=== PATIENT | female | born 1995 | race Caucasian/White ===

== ENCOUNTER 2018-06-08 15:10 | Emergency (ER) | payer OTHER ==
[2018-06-08 15:16] VITALS: BP 104/62
--- NOTE | 2018-06-08 18:49 | ER Document Report ---
ED Medical Screen (RME) - General Chief Complaint: Abdominal Pain Stated Complaint: ABDOMINAL PAIN Time Seen by Provider: 06/08/18 18:44 Mode of Arrival: Ambulatory Information source: Patient Notes: 22-year-old female at approximately 7 weeks per last menstrual period presents with complaint of nausea, dry heaving and generalized abdominal pain that started 1 week prior to arrival. Patient also admits to body aches, chills. I have greeted and performed a rapid initial assessment of this patient. A comprehensive ED assessment and evaluation of the patient, analysis of test resu lts and completion of medical decision making process we will be contacted by additional ED providers. PHYSICAL EXAMINATION: Vital signs reviewed GENERAL: Well-appearing, well-nourished and in no acute distress. LUNGS: No respiratory distress Musculoskeletal: Normal range of motion NEUROLOGICAL: Normal speech, normal gait. PSYCH: Normal mood, normal affect. SKIN: Warm, Dry, normal turgor, no rashes or lesions noted. TRAVEL OUTSIDE OF THE [place] IN LAST 30 DAYS: No - HPI Onset: Last week Onset/Duration: Gradual, Persistent Quality of pain: Achy Severity: Mild Associated Symptoms: Abdominal pain, Nausea, Vomiting Exacerbated by: Denies Relieved by: Denies Similar symptoms previously: No Recently seen / treated by doctor: No - Related Data Smoking: Non-smoker Frequency of alcohol use: None Drug Abuse: None Allergies/Adverse Reactions: No Known Allergies Allergy (Unverified 06/08/18 15:13) Past Medical History - Social History Chew tobacco use (# tins/day): No Frequency of alcohol use: None Drug Abuse: None Renal/ Medical History: Denies: Hx Peritoneal Dialysis Physical Exam - Vital signs Vitals: Temp Pulse Resp BP Pulse Ox 98.8 F 72 16 104/62 100 06/08/18 15:14 06/08/18 15:14 06/08/18 15:14 06/08/18 15:14 06/08/18 15:14 Course - Vital Signs Vital signs: Temp Pulse Resp BP Pulse Ox 98.8 F 72 16 104/62 100 06/08/18 15:14 06/08/18 15:14 06/08/18 15:14 06/08/18 15:14 06/08/18 15:14
[2018-06-08] MEDS ORDERED: ONDANSETRON 4 MG TAB.RAPDIS PO ONE (18:50)
[2018-06-08 20:23] LABS: ABSOLUTE LYMPHOCYTES (AUTO) 2.2 10^3/uL (0.5-4.7); ABSOLUTE MONOCYTES (AUTO) 0.7 10^3/uL (0.1-1.4); ABSOLUTE NEUT (AUTO) 6.9 10^3/uL (1.7-8.2); BASOPHILS % (AUTO) 0.4 % (0-2); EOSINOPHILS % (AUTO) 0.5 % (0-6); HEMATOCRIT 40.4 % (36.0-47.0); HEMOGLOBIN 14.3 g/dL (12.0-15.5); LYMPHOCYTES % (AUTO) 22.5 % (13-45); MEAN CORPUSCULAR HGB CONC 35.3 g/dL (32.0-36.0); MEAN CORPUSCULAR VOLUME 85 fl (80-97); MONOCYTES % (AUTO) 7.1 % (3-13); PLATELET COUNT 201 10^3/uL (150-450); RED BLOOD COUNT 4.76 10^6/uL (3.72-5.28); RED CELL DISTRIBUTION WIDTH 12.4 % (11.5-14.0); SEGMENTED NEUTROPHILS % (AUTO) 69.5 % (42-78); TOTAL CELLS COUNTED % (AUTO) 100 %; WHITE BLOOD COUNT 9.9 10^3/uL (4.0-10.5)
[2018-06-08 20:27] LABS: APPEARANCE,URINE CLOUDY; BILIRUBIN,URINE NEGATIVE (NEGATIVE); COLOR,URINE YELLOW; GLUCOSE, URINE NEGATIVE (NEGATIVE); KETONES,URINE NEGATIVE (NEGATIVE); LEUKOCYTE ESTERASE,URINE MODERATE (NEGATIVE); NITRITE,URINE NEGATIVE (NEGATIVE); PROTEIN,URINE NEGATIVE (NEGATIVE); URINE SPECIFIC GRAVITY 1.012; UROBILINOGEN,URINE NEGATIVE mg/dL (<2.0)
--- NOTE | 2018-06-08 22:11 | RADIOLOGY REPORT (SQ) ---
EXAM DESCRIPTION: US TRANSVAGINAL COMPLETED DATE/TME: 06/08/2018 18:52 CLINICAL HISTORY: 22 years, Female, with abdominal pain COMPARISON: None. TECHNIQUE: LIMITATIONS: None. FINDINGS: There is a live 7 week 2 day IUP, based on a crown-rump length of 11 mm. Embryonic cardiac activity was measured at 141 bpm. No evidence of subchorionic hemorrhage. There is a normal amount of amniotic fluid. The cervix measures 3.9 cm in length and is closed. The ovaries are unremarkable. No free fluid. IMPRESSION: Unremarkable IUP. copyright 2010 [employer]- All Rights Reserved
--- NOTE | 2018-06-08 22:22 | ER Document Report ---
ED General - General Chief Complaint: Abdominal Pain Stated Complaint: ABDOMINAL PAIN Time Seen by Provider: 06/08/18 18:44 Primary Care Provider: ANNALEE BIRCH MD [Primary Care Provider] - Follow up as needed Mode of Arrival: Ambulatory Notes: 22-year-old female at approximately 7 weeks per last menstrual period presents with complaint of nausea, dry heaving and generalized abdominal pain that started 1 week prior to arrival. Patient also admits to body aches, chills. Patient describes the pain as sharp which ebbs and flows for approximately 5 seconds at a time that is around her umbilicus. She is also complaining of urinary frequency. No other complaints TRAVEL OUTSIDE OF THE [place] IN LAST 30 DAYS: No - Related Data Allergies/Adverse Reactions: No Known Allergies Allergy (Unverified 06/08/18 15:13) Past Medical History - General Information source: Patient - Social History Smoking Status: Never Smoker Chew tobacco use (# tins/day): No Frequency of alcohol use: None Drug Abuse: None Family History: None Patient has suicidal ideation: No Patient has homicidal ideation: No Renal/ Medical History: Denies: Hx Peritoneal Dialysis Review of Systems - Review of Systems Constitutional: See HPI EENT: No symptoms reported Cardiovascular: See HPI Respiratory: See HPI Gastrointestinal: See HPI Genitourinary: See HPI Female Genitourinary: No symptoms reported Musculoskeletal: No symptoms reported Skin: No symptoms reported Hematologic/Lymphatic: No symptoms reported Neurological/Psychological: No symptoms reported Physical Exam - Vital signs Vitals: Temp Pulse Resp BP Pulse Ox 98.8 F 72 16 104/62 100 06/08/18 15:14 06/08/18 15:14 06/08/18 15:14 06/08/18 15:14 06/08/18 15:14 - Notes Notes: PHYSICAL EXAMINATION: Reviewed vital signs and charting by RN GENERAL: Alert, interacts well. No acute distress. HEAD: Normocephalic, atraumatic. EYES: Pupils equal, round Extraocular movements intact. ENT: Oral mucosa moist NECK: Full range of motion. Trachea midline. LUNGS: Clear to auscultation bilaterally, no wheezes, rales, or rhonchi. No respiratory distress. HEART: Regular rate and rhythm. No murmur ABDOMEN: soft, tender to palpation just right of umbilicus with no right lower quadrant pain. Non-distended. Bowel sounds present in all 4 quadrants. no McBur grazyna's point tenderness, no Rangel sign. EXTREMITIES: Moves all 4 extremities spontaneously. No edema, No cyanosis. NEUROLOGICAL: Alert. Normal speech. PSYCH: Normal affect, normal mood. SKIN: Warm, dry, normal turgor. No rashes or lesions noted. Course - Re-evaluation Re-evalutation: 06/08/18 22:18 Transvaginal ultrasound performed and shows a live intrauterine with a heartbeat of 141 bpm approximately 7 weeks gestation. And also with a urinary tract infection, urine sent for culture, will treat with Rocephin IM 1 time here and Keflex outpatient. Is safe and stable for discharge, no vaginal bleeding or abnormal discharge - Vital Signs Vital signs: Temp Pulse Resp BP Pulse Ox 98.8 F 72 16 104/62 100 06/08/18 15:14 06/08/18 15:14 06/08/18 15:14 06/08/18 15:14 06/08/18 15:14 - Laboratory Result Diagrams: 06/08/18 20:00 Laboratory results interpreted by me: 06/08/18 06/08/18 20:00 20:00 Beta HCG, Quant 12518.00 H Ur Leukocyte Esterase MODERATE H Urine HCG, Qual POSITIVE H Discharge - Discharge Clinical Impression: Urinary tract infection affecting care of mother in first trimester, antepartum, Nausea Qualifiers: Weeks of gestation: less than 8 weeks Qualified Code(s): Z3A.01 - Less than 8 weeks gestation of Condition: Good Disposition: HOME, SELF-CARE Additional Instructions: You are seen in the emergency department today for abdominal pain. Your ultrasound showed a live intrauterine approximately 7 weeks gestation. The pain you are having could be related to urinary tract infection. You are having urinary frequency which most likely is related to the UTI. I have given you one shot of Rocephin here in the emergency department with follow-up outpatient Keflex. He should take the Keflex 500 mg 2 times per day for 7 days. Call your CLINICAL SOCIOLOGIST tomorrow to arrange for follow-up and let them know if the results. If you develop acute severe unremitting abdominal pain, vaginal bleed ing, any abnormal concerning vaginal discharge, high fever, Referrals: HALLEGADO,ANNALEE, MD [Primary Care Provider] - Follow up as needed
[2018-06-08] MEDS ORDERED: CEFTRIAXONE INJ 1000 MG VIAL IM ONE (22:23)
== END 2018-06-08 23:05 | disposition home or self-care (01) ==
LOC: ER 15:10
DX: O23.41 Unspecified infection of urinary tract in pregnancy, first trimester (principal); O26.891 Other specified pregnancy related conditions, first trimester; R10.9 Unspecified abdominal pain; R35.0 Frequency of micturition; M79.10 Myalgia, unspecified site; R11.0 Nausea; Z3A.01 Less than 8 weeks gestation of pregnancy
CPT/HCPCS: 99284; 96372; 36415; 87086; 84702; 85025; 81025; 81001; 76817; S0119; J0696

== ENCOUNTER 2018-07-09 12:06 | Emergency (ER) | payer OTHER ==
[2018-07-09 12:20] VITALS: BP 101/60
[2018-07-09] MEDS ORDERED: METOCLOPRAMIDE HCL INJ/PF 10 MG/2 ML SDV IV ONE (12:34)
[2018-07-09] MEDS ORDERED: NORMAL SALINE 1000 ML 1,000 ML IV ONE (12:34)
--- NOTE | 2018-07-09 12:34 | ER Document Report ---
ED General - General Chief Complaint: Vomiting Stated Complaint: VOMITING,ABDOMINAL PAIN Time Seen by Provider: 07/09/18 12:25 Primary Care Provider: ANNALEE BIRCH MD [COMMUNITY BASED STAFF] - Follow up in 3-5 days Notes: Patient is a 22-year-old female, that presents to the emergency department for chief complaint of nausea, vomiting and diarrhea. Patient states she is been having the symptoms over the past day and a half, and called her OB, stated it was probably a stomach bug, but she decided come the emergency department to be evaluated. She denies any any fevers, chills, dysuria, hematuria and is having some mild abdominal cramping. Denies lightheadedness, or syncopal episodes. She is otherwise healthy, she is approximately 12 weeks gravid, without complication so far. Past Medical History: Denies chronic medical conditions Past Surgical History: Laparoscopy Social History: Denies tobacco, alcohol or drug use Family History: Reviewed and noncontributory for presenting illness Allergies: Reviewed, see documented allergy list. REVIEW OF SYSTEMS: Other than noted above, the 12 point review of systems was reviewed with the patient and were negative, all pertinent findings are included in the HPI. PHYSICAL EXAMINATION: Vital signs reviewed, nursing noted reviewed. GENERAL: Well-appearing, well-nourished and in no acute distress. HEAD: Atraumatic, normocephalic. EYES: Eyes appear normal, extraocular movements intact, sclera anicteric, conjunctiva are normal. ENT: nares patent, oropharynx clear without exudates. Moist mucous membranes. NECK: Normal range of motion, supple without lymphadenopathy LUNGS: Breath sounds clear to auscultation bilaterally and equal. No wheezes rales or rhonchi. HEART: Regular rate and rhythm without murmurs ABDOMEN: Soft, nontender, normoactive bowel sounds. No rebound, guarding, or rigidity. No masses appreciated. EXTREMITIES: Nontender, good range of motion, no pitting or edema. NEUROLOGICAL: No focal neurological deficits. Moves all extremities spontaneously Motor and sensory grossly intact on exam. PSYCH: Normal mood, normal affect. SKIN: Warm, Dry, normal turgor, no rashes or lesions noted on exposed skin TRAVEL OUTSIDE OF THE [place] IN LAST 30 DAYS: No - Related Data Allergies/Adverse Reactions: No Known Allergies Allergy (Verified 07/09/18 12:08) Past Medical History - Social History Smoking Status: Never Smoker Frequency of alcohol use: None Drug Abuse: None Family History: None Patient has suicidal ideation: No Patient has homicidal ideation: No Renal/ Medical History: Denies: Hx Peritoneal Dialysis Past Surgical History: Reports: Hx Genitourinary Surgery - laproscopic to check for endometriosis, Hx Orthopedic Surgery - R knee, R shoulder x2 Physical Exam - Vital signs Vitals: Temp Pulse Resp BP Pulse Ox 98.2 F 102 H 16 101/60 100 07/09/18 12:19 07/09/18 12:19 07/09/18 12:19 07/09/18 12:19 07/09/18 12:19 Course - Re-evaluation Re-evalutation: Patient seen and examined vital signs reviewed. Laboratory data and imaging were ordered as appropriate for the patient's presenting symptoms and complaint, with consideration of any critical or life threatening conditions that may be associated with their obtained history and exam as noted above. Patient was treated with IV fluids and Reglan Results were reviewed when available and demonstrated UA consistent with a urinary tract infection, will send for culture The patient was re-evaluated and was stable and improved Evaluation was most consistent with UTI and , will discharge her home on Keflex, and given a prescription for Reglan to take only if needed for nausea and vomiting. Results were discussed with the patient at this point, after careful co nsideration I feel that that patient can be discharged from the emergency department, the patient was educated treatments and reasons to return to the emergency department based on their presumed diagnosis as noted above, they were advised to followup with a primary care physician in 2-3 days. Patient was agreeable to plan of care. *Note is created using voice recognition software and may contain spelling, syntax or grammatical errors. Laboratory 07/09/18 12:39 Urine Color MACY Urine Appearance CLOUDY Urine pH 5.0 Ur Specific [place] 1.021 Urine Protein NEGATIVE Urine Glucose (UA) NEGATIVE Urine Ketones NEGATIVE Urine Blood NEGATIVE Urine Nitrite NEGATIVE Urine Bilirubin NEGATIVE Urine Urobilinogen NEGATIVE Ur Leukocyte Esterase TRACE H Urine WBC (Auto) 6 Urine RBC (Auto) 3 Urine Bacteria (Auto) 3+ Squamous Epi Cells Auto 2 Uric Acid Cryst (Auto) MODERATE Urine Mucus (Auto) MANY Urine Ascorbic Acid 20 H - Vital Signs Vital signs: Temp Pulse Resp BP Pulse Ox 98.2 F 102 H 16 101/60 100 07/09/18 12:19 07/09/18 12:19 07/09/18 12:19 07/09/18 12:19 07/09/18 12:19 - Laboratory Laboratory results interpreted by me: 07/09/18 12:39 Ur Leukocyte Esterase TRACE H Urine Ascorbic Acid 20 H Discharge - Discharge Clinical Impression: UTI (urinary tract infection) Qualifiers: Urinary tract infection type: site unspecified Hematuria presence: without hematuria Qualified Code(s): N39.0 - Urinary tract infection, site not specified Nausea and vomiting Qualifiers: Vomiting type: unspecified Vomiting Intractability: non-intractable Qualified Code(s): R11.2 - Nausea with vomiting, unspecified Condition: Stable Disposition: HOME, SELF-CARE Instructions: Cephalexin ([facility]), Urinary Tract Infection ([facility]), Vomiting ([facility]) Prescriptions: RX: Cephalexin Monohydrate [Keflex 500 mg Capsule] 500 mg PO BID 5 Days #10 capsule Metoclopramide HCl [Reglan 10 mg Tablet] 10 mg PO Q8H PRN #15 tablet PRN Reason: nausea/vomiting Referrals: ANNALEE BIRCH MD [COMMUNITY BASED STAFF] - Follow up in 3-5 days
[2018-07-09 14:24] LABS: APPEARANCE,URINE CLOUDY; BILIRUBIN,URINE NEGATIVE (NEGATIVE); COLOR,URINE AMBER; GLUCOSE, URINE NEGATIVE (NEGATIVE); KETONES,URINE NEGATIVE (NEGATIVE); LEUKOCYTE ESTERASE,URINE TRACE (NEGATIVE); NITRITE,URINE NEGATIVE (NEGATIVE); PROTEIN,URINE NEGATIVE (NEGATIVE); URIC ACID CRYSTALS,URINE MODERATE /HPF; URINE SPECIFIC GRAVITY 1.021; UROBILINOGEN,URINE NEGATIVE mg/dL (<2.0)
== END 2018-07-09 14:58 | disposition home or self-care (01) ==
LOC: ER 12:06
DX: O23.41 Unspecified infection of urinary tract in pregnancy, first trimester (principal); O21.9 Vomiting of pregnancy, unspecified; O26.891 Other specified pregnancy related conditions, first trimester; R19.7 Diarrhea, unspecified; Z3A.12 12 weeks gestation of pregnancy
CPT/HCPCS: 99284; 96361; 96374; 87086; 81001; J2765; J7030

== ENCOUNTER 2018-11-22 12:12 | Outpatient (CLI) | payer OTHER ==
[2018-11-22 13:08] LABS: APPEARANCE,URINE SLIGHTLY-CLOUDY; BILIRUBIN,URINE NEGATIVE (NEGATIVE); CALCIUM OXALATE CRYSTALS,URINE FEW /HPF; COLOR,URINE YELLOW; GLUCOSE, URINE NEGATIVE (NEGATIVE); KETONES,URINE NEGATIVE (NEGATIVE); LEUKOCYTE ESTERASE,URINE TRACE (NEGATIVE); NITRITE,URINE NEGATIVE (NEGATIVE); PROTEIN,URINE NEGATIVE (NEGATIVE); URINE SPECIFIC GRAVITY 1.017; UROBILINOGEN,URINE NEGATIVE mg/dL (<2.0)
[2018-11-22 13:22] LABS: URINE AMPHETAMINES SCREEN NEGATIVE; URINE BARBITURATES SCREEN NEGATIVE; URINE BENZODIAZEPINES SCREEN NEGATIVE; URINE COCAINE SCREEN NEGATIVE; URINE MARIJUANA (THC) SCREEN NEGATIVE; URINE METHADONE SCREEN NEGATIVE; URINE PHENCYCLIDINE SCREEN NEGATIVE
[2018-11-22] MEDS ORDERED: CEFTRIAXONE INJ 1000 MG VIAL IM ONE (13:30)
[2018-11-22 14:02] LABS: HEMATOCRIT 35.3 % (36.0-47.0); HEMOGLOBIN 12.1 g/dL (12.0-15.5); MEAN CORPUSCULAR HEMOGLOBIN 30.3 pg (27.0-33.4); MEAN CORPUSCULAR HGB CONC 34.2 g/dL (32.0-36.0); MEAN CORPUSCULAR VOLUME 89 fl (80-97); PLATELET COUNT 131 10^3/uL (150-450); RED BLOOD COUNT 3.99 10^6/uL (3.72-5.28); RED CELL DISTRIBUTION WIDTH 13.1 % (11.5-14.0); WHITE BLOOD COUNT 6.7 10^3/uL (4.0-10.5)
[2018-11-22] MEDS ORDERED: CEFTRIAXONE INJ 1000 MG VIAL ONE (14:14)
[2018-11-22] MEDS ORDERED: LIDOCAINE 1% INJ-PF (10 MG/ML) 30 ML SDV ONE (14:14)
--- NOTE | 2018-11-22 14:19 | RADIOLOGY REPORT (SQ) ---
EXAM DESCRIPTION: U/S RETROPERITON (RENAL/AORTA) COMPLETED DATE/TIME: 11/22/2018 1:55 pm REASON FOR STUDY: US exam of kidney's and ureters for right flank pa COMPARISON: None. TECHNIQUE: Dynamic and static grayscale images acquired of the kidneys and bladder and recorded on P ACS. Additional selected color Doppler and spectral images recorded. LIMITATIONS: None. FINDINGS: RIGHT KIDNEY: Normal size. Normal echogenicity. No solid or suspicious masses. Kaylin l pelvis is dilated 1.4 cm. Within the normal range for staging station. No calcifications. LEFT KIDNEY: Normal size. Normal echogenicity. No solid or suspicious masses. No hydronephrosi s. No calcifications. BLADDER: No masses. OTHER FINDINGS: Fetus in vertex position. heart rate 131 beats per Min. IMPRESSION: None normal renal bladder and ultrasound for stated gestation. Mild dilatation of the r ight renal pelvis. COMMENT: The degree of renal pelvocalyceal dilation is correlated with the patient's current stage o f . TECHNICAL DOCUMENTATION: JOB ID: [id number] [employer]- All Rights Reserved Reading location - IP/workstation name: [facility]
[2018-11-22 14:34] LABS: ABSOLUTE LYMPHOCYTES# (MANUAL) 1.1 10^3/uL (0.5-4.7); ABSOLUTE MONOCYTES # (MANUAL) 0.7 10^3/uL (0.1-1.4); BASOPHILS % (MANUAL) 1 % (0-2); EOSINOPHILS % (MANUAL) 1 % (0-6); LYMPHOCYTES % (MANUAL) 17 % (13-45); MONOCYTES % (MANUAL) 11 % (3-13); PLATELET COMMENT ADEQUATE; RBC MORPHOLOGY COMMENT NORMO-CYTIC/CHROMIC; SEGMENTED NEUTROPHILS % (MAN) 70 % (42-78); TOTAL CELLS COUNTED 100
== END 2018-11-22 15:09 | disposition home or self-care (01) ==
LOC: LC 12:12
PROVIDERS: ATTEND Obstetrics & Gynecology Gynecology
PROC: 4A1HXCZ Monitoring of Products of Conception, Cardiac Rate, External Approach (ICD-10-PCS; principal; 2018-11-22)
DX: O99.89 Other specified diseases and conditions complicating pregnancy, childbirth and the puerperium (principal); M54.9 Dorsalgia, unspecified; R10.2 Pelvic and perineal pain; Z3A.31 31 weeks gestation of pregnancy
CPT/HCPCS: 59899; 36415; 87086; 85025; 87088; 81001; 80307; 76770; J3490; J0696

== ENCOUNTER 2019-01-15 16:53 | Outpatient (CLI) | payer OTHER ==
[2019-01-15 17:24] LABS: APPEARANCE,URINE CLEAR; BILIRUBIN,URINE NEGATIVE (NEGATIVE); COLOR,URINE STRAW; GLUCOSE, URINE NEGATIVE (NEGATIVE); KETONES,URINE NEGATIVE (NEGATIVE); LEUKOCYTE ESTERASE,URINE TRACE (NEGATIVE); NITRITE,URINE NEGATIVE (NEGATIVE); PROTEIN,URINE NEGATIVE (NEGATIVE); URINE SPECIFIC GRAVITY 1.006; UROBILINOGEN,URINE NEGATIVE mg/dL (<2.0)
[2019-01-15 17:41] LABS: URINE AMPHETAMINES SCREEN NEGATIVE; URINE BARBITURATES SCREEN NEGATIVE; URINE BENZODIAZEPINES SCREEN NEGATIVE; URINE COCAINE SCREEN NEGATIVE; URINE MARIJUANA (THC) SCREEN NEGATIVE; URINE METHADONE SCREEN NEGATIVE; URINE PHENCYCLIDINE SCREEN NEGATIVE
--- NOTE | 2019-01-15 17:57 | Non Stress Test Report ---
Non Stress Test Datetime Report Generated by CPN: 01/15/2019 17:57 DEMOGRAPHIC EGA NST: 38.5 INDICATION Indication for Study: Ordered by Provider MONITORING Monitor Explained: Monitor Explained; Test Explained; Patient Verbalized Understanding Time on Monitor: 01/15/2019 16:59 Time off Monitor: 01/15/2019 17:54 NST Duration: 55 NST INTERVENTIONS NST Interventions: PO Hydration Physician Notified NST: Dr. Silverman BABY A: [id number] BABY A Movement : Present Contraction Frequency : 2-5 FHR Baseline : 130 Accelerations : 15X15 Decelerations : None Variability : Moderate 6-25bpm NST Review: Meets Criteria for Reactive NST NST Review and Verified By : Suraj Oropeza RN NST Results: Reactive NST REPORT Report Trigger: Send Report
== END 2019-01-15 18:03 | disposition home or self-care (01) ==
LOC: LC 16:53
PROVIDERS: ATTEND Obstetrics & Gynecology Gynecology
PROC: 4A1HXCZ Monitoring of Products of Conception, Cardiac Rate, External Approach (ICD-10-PCS; principal; 2019-01-15)
DX: O47.1 False labor at or after 37 completed weeks of gestation (principal); Z3A.38 38 weeks gestation of pregnancy
CPT/HCPCS: 59025; 80307; 81005; 84112

== ENCOUNTER 2019-01-17 13:17 | Outpatient (CLI) | payer OTHER ==
[2019-01-17 13:54] LABS: APPEARANCE,URINE SLIGHTLY-CLOUDY; BILIRUBIN,URINE NEGATIVE (NEGATIVE); COLOR,URINE YELLOW; GLUCOSE, URINE NEGATIVE (NEGATIVE); KETONES,URINE NEGATIVE (NEGATIVE); LEUKOCYTE ESTERASE,URINE TRACE (NEGATIVE); NITRITE,URINE NEGATIVE (NEGATIVE); PROTEIN,URINE NEGATIVE (NEGATIVE); URINE SPECIFIC GRAVITY 1.005; UROBILINOGEN,URINE NEGATIVE mg/dL (<2.0)
[2019-01-17 14:24] LABS: URINE AMPHETAMINES SCREEN NEGATIVE; URINE BARBITURATES SCREEN NEGATIVE; URINE BENZODIAZEPINES SCREEN NEGATIVE; URINE COCAINE SCREEN NEGATIVE; URINE MARIJUANA (THC) SCREEN NEGATIVE; URINE METHADONE SCREEN NEGATIVE; URINE PHENCYCLIDINE SCREEN NEGATIVE
== END 2019-01-17 15:13 | disposition home or self-care (01) ==
LOC: LC 13:17
PROVIDERS: ATTEND Obstetrics & Gynecology Gynecology
PROC: 4A1HXCZ Monitoring of Products of Conception, Cardiac Rate, External Approach (ICD-10-PCS; principal; 2019-01-17)
DX: O36.8130 Decreased fetal movements, third trimester, not applicable or unspecified (principal); O47.1 False labor at or after 37 completed weeks of gestation; Z3A.39 39 weeks gestation of pregnancy
CPT/HCPCS: 80307; 81005

== ENCOUNTER 2019-01-18 16:42 | Inpatient (IN) | payer OTHER ==
[2019-01-18] MEDS ORDERED: RINGERS SOLUTION,LACTATED 1,000 ML IV ONE (16:48)
[2019-01-18] MEDS ORDERED: PENICILLIN G-K 5 MILLION UNIT VIAL ONE (17:06)
[2019-01-18] MEDS ORDERED: OXYTOCIN 10 UNIT/ML VIAL ONE (17:15)
[2019-01-18] MEDS ORDERED: MISOPROSTOL 0.2 MG TABLET ONE (17:16)
[2019-01-18] MEDS ORDERED: LIDOCAINE 1% INJ-PF (10 MG/ML) 30 ML SDV ONE (17:16)
[2019-01-18] MEDS ORDERED: OXYTOCIN/NORMAL SALINE 20 UNIT/1,000 ML RTUINJ ONE (17:16)
[2019-01-18 17:32] LABS: ABSOLUTE BASOPHILS # (AUTO) 0.1 10^3/uL (0.0-0.2); ABSOLUTE LYMPHOCYTES (AUTO) 2.2 10^3/uL (0.5-4.7); ABSOLUTE MONOCYTES (AUTO) 1.1 10^3/uL (0.1-1.4); ABSOLUTE NEUT (AUTO) 10.9 10^3/uL (1.7-8.2); BASOPHILS % (AUTO) 0.4 % (0-2); EOSINOPHILS % (AUTO) 0.2 % (0-6); HEMATOCRIT 37.2 % (36.0-47.0); HEMOGLOBIN 12.9 g/dL (12.0-15.5); LYMPHOCYTES % (AUTO) 15.2 % (13-45); MEAN CORPUSCULAR HGB CONC 34.7 g/dL (32.0-36.0); MEAN CORPUSCULAR VOLUME 86 fl (80-97); MONOCYTES % (AUTO) 7.6 % (3-13); PLATELET COUNT 184 10^3/uL (150-450); RED CELL DISTRIBUTION WIDTH 13.4 % (11.5-14.0); SEGMENTED NEUTROPHILS % (AUTO) 76.6 % (42-78); TOTAL CELLS COUNTED % (AUTO) 100 %; WHITE BLOOD COUNT 14.2 10^3/uL (4.0-10.5)
[2019-01-18] MEDS ORDERED: PENICILLIN G POTASSIUM 5,000,000 UNIT in DEXTROSE 5%-WATER 100 ML IV ONE (18:30)
[2019-01-18] MEDS ORDERED: FENTANYL CITRATE INJ/PF 100 MCG/2 ML AMPUL ONE (18:59)
[2019-01-18] MEDS ORDERED: EPHEDRINE SULFATE INJ 50 MG/1 ML AMPULE ONE (18:59)
[2019-01-18] MEDS ORDERED: FENTANYL/BUPIVACAINE/NS/PF 0 MCG/0 ML RTUINJ EPI ONE (19:00)
[2019-01-18] MEDS ORDERED: BUPIVACAINE HCL 0.25 % INJ/PF (2.5 MG/1 ML) 30 ML VIAL ONE (19:00)
[2019-01-18 19:47] LABS: URINE AMPHETAMINES SCREEN NEGATIVE; URINE BARBITURATES SCREEN NEGATIVE; URINE BENZODIAZEPINES SCREEN NEGATIVE; URINE COCAINE SCREEN NEGATIVE; URINE MARIJUANA (THC) SCREEN NEGATIVE; URINE METHADONE SCREEN NEGATIVE; URINE PHENCYCLIDINE SCREEN NEGATIVE
[2019-01-18] MEDS ORDERED: RINGERS SOLUTION,LACTATED 1,000 ML IV PRN (19:54)
[2019-01-18] MEDS ORDERED: ACETAMINOPHEN WITH CODEINE #3 TABLET ONE (20:29)
[2019-01-18] MEDS ORDERED: PROMETHAZINE HCL 25 MG SUPP.RECT PR PRN (20:51)
[2019-01-18] MEDS ORDERED: DIBUCAINE 1% OINTMENT 56 GM TP PRN (20:51)
[2019-01-18] MEDS ORDERED: DIPHENHYDRAMINE HCL 25 MG CAPSULE PO PRN (20:51)
[2019-01-18] MEDS ORDERED: OXYTOCIN/NORMAL SALINE 20 UNIT/1,000 ML RTUINJ IV PRN (20:51)
[2019-01-18] MEDS ORDERED: ZOLPIDEM TARTRATE 5 MG TABLET PO PRN (20:51)
[2019-01-18] MEDS ORDERED: GLYCERIN/WITCH HAZEL LEAF 1 EACH MED..WIPE TP PRN (20:51)
[2019-01-18] MEDS ORDERED: PROMETHAZINE HCL INJ 25 MG/1 ML VIAL IV PRN (20:51)
[2019-01-18] MEDS ORDERED: NA PHOS,M-B/NA PHOS,DI-BA (ADULT) 133 ML ENEMA PR PRN (20:51)
[2019-01-18] MEDS ORDERED: MEASLES,MUMPS&RUBELLA VACC/PF 0.5 ML VIAL SUBCUT PRN (20:51)
[2019-01-18] MEDS ORDERED: MAGNESIUM HYDROXIDE SUSP 30 ML UDCUP PO PRN (20:51)
[2019-01-18] MEDS ORDERED: PSEUDOEPHEDRINE HCL 30 MG TABLET PO PRN (20:51)
[2019-01-18] MEDS ORDERED: BENZOCAINE/MENTHOL AEROSOL SPRAY 56 ML TOP PRN (20:51)
[2019-01-18] MEDS ORDERED: ACETAMINOPHEN WITH CODEINE #3 TABLET PO PRN (20:51)
[2019-01-18] MEDS ORDERED: ACETAMINOPHEN 650 MG SUPP.RECT PR PRN (20:51)
[2019-01-18] MEDS ORDERED: DIPH/PERTUSS(ACELL)/TETANUS VAC/PF 0.5 ML SYR (>=10YO) IM PRN (20:51)
[2019-01-18] MEDS ORDERED: PROMETHAZINE HCL 25 MG TABLET PO PRN (20:51)
[2019-01-18] MEDS ORDERED: IBUPROFEN 800 MG TABLET ONE (22:00)
[2019-01-18] MEDS: PENICILLIN G POTASSIUM 2,500,000 UNIT in DEXTROSE 5%-WATER 50 ML IV SCH (23:23)
[2019-01-18] MEDS: IBUPROFEN 800 MG TABLET PO SCH (23:50)
[2019-01-18] MEDS: FAMOTIDINE 20 MG TABLET PO SCH (23:50)
[2019-01-19] MEDS: ACETAMINOPHEN WITH CODEINE #3 TABLET PO PRN (00:33)
[2019-01-19] MEDS: PENICILLIN G POTASSIUM 2,500,000 UNIT in DEXTROSE 5%-WATER 50 ML IV SCH (03:49)
[2019-01-19] MEDS: IBUPROFEN 800 MG TABLET PO SCH ×3 (05:49→21:27)
[2019-01-19 08:01] LABS: HEMATOCRIT 33.3 % (36.0-47.0); HEMOGLOBIN 11.4 g/dL (12.0-15.5); MEAN CORPUSCULAR HEMOGLOBIN 29.8 pg (27.0-33.4); MEAN CORPUSCULAR HGB CONC 34.3 g/dL (32.0-36.0); MEAN CORPUSCULAR VOLUME 87 fl (80-97); PLATELET COUNT 159 10^3/uL (150-450); RED BLOOD COUNT 3.83 10^6/uL (3.72-5.28); RED CELL DISTRIBUTION WIDTH 13.4 % (11.5-14.0); WHITE BLOOD COUNT 14.1 10^3/uL (4.0-10.5)
[2019-01-19] MEDS: FAMOTIDINE 20 MG TABLET PO SCH ×3 (09:26→21:28)
[2019-01-19] MEDS: PRENATAL VITAMIN W DHA CAPSULE PO SCH (09:26)
[2019-01-19] MEDS: FERROUS SULFATE 325 MG TABLET PO SCH ×2 (09:26→18:35)
[2019-01-19] MEDS: SENNOSIDES/DOCUSATE 8.6-50 MG 1 EACH TABLET PO SCH (09:26)
[2019-01-19] MEDS: DOCUSATE SODIUM 100 MG CAPSULE PO SCH ×2 (09:26→18:35)
--- NOTE | 2019-01-19 10:17 | PDOC PROGRESS REPORT ---
Subjective-OB Progress Note for:: 01/19/19 Subjective: Doing well, hsb and friends in room holding baby, , scant bleeding, eating and voiding Physical Exam (OB) Vital Signs: Temp Pulse Resp BP Pulse Ox 98.8 F 69 16 119/52 L 100 01/19/19 07:51 01/19/19 07:51 01/19/19 07:51 01/19/19 07:51 01/19/19 07:51 Intake & Output 01/18/19 01/19/19 01/20/19 06:59 06:59 06:59 Output Total 600 Balance -600 Weight 79.9 kg - Lochia Lochia Amount: Small 10-25 ml Lochia Color: Rubra/Red - Abdomen Description: Soft, Round Hernia Present: No Fundal Description: Firm, Midline Fundal Height: u/u - u/2 Objective-Diagnostic Laboratory: 01/19/19 07:21 01/18/19 01/18/19 01/19/19 17:18 17:18 07:21 WBC 14.2 H 14.1 H RBC 4.30 3.83 Hgb 12.9 11.4 L Hct 37.2 33.3 L MCV 86 87 MCH 30.0 29.8 MCHC 34.7 34.3 RDW 13.4 13.4 Plt Count 184 159 Seg Neutrophils % 76.6 Blood Type O NEGATIVE Antibody Screen POSITIVE 01/19/19 07:21 WBC RBC Hgb Hct MCV MCH MCHC RDW Plt Count Seg Neutrophils % Blood Type O NEGATIVE Antibody Screen Assessment and Plan(PN) - Assessment and Plan (1) Vaginal delivery Is this a current diagnosis for this admission?: Yes (2) GBS (group B Streptococcus carrier), +RV culture, currently Is this a current diagnosis for this admission?: Yes - Time Spent with Patient Time with patient: Less than 15 minutes Medications reviewed and adjusted accordingly: Yes - Disposition Anticipated Discharge: Home Within: within 24 hours
[2019-01-20] MEDS: IBUPROFEN 800 MG TABLET PO SCH ×2 (05:18→13:07)
[2019-01-20] MEDS: ACETAMINOPHEN WITH CODEINE #3 TABLET PO PRN (06:31)
[2019-01-20 09:10] VITALS: BP 111/66
[2019-01-20] MEDS: DOCUSATE SODIUM 100 MG CAPSULE PO SCH (10:24)
[2019-01-20] MEDS: SENNOSIDES/DOCUSATE 8.6-50 MG 1 EACH TABLET PO SCH (10:24)
[2019-01-20] MEDS: PRENATAL VITAMIN W DHA CAPSULE PO SCH (10:24)
[2019-01-20] MEDS: FERROUS SULFATE 325 MG TABLET PO SCH (10:24)
--- NOTE | 2019-01-20 10:38 | PDOC DISCHARGE SUMMARY ---
Impression - Admit/DC Date/PCP Admission Date/Primary Care Provider: 01/18/19 17:10 LORY PEREIRA MD Discharge Date: 01/20/19 - PP Day #2, doing well, has been up ambulating, O negative, needs Rhogam prior to d/c home, Rubella immune, - Additional Information Resuscitation Status: Full Code Discharge Diet: As Tolerated, Regular Discharge Activity: Activity As Tolerated, No Lifting Over 10 Pounds, Pelvic Rest Referrals: OLRY PEREIRA MD [Primary Care Provider] - Prescriptions: Ibuprofen [Motrin 800 mg Tablet] 800 mg PO Q8 #60 tablet Home Medications: Vit,Calc76/Iron/Folic [Prenatabs Rx Tablet] 1 tab PO DAILY 11/22/18 Ibuprofen [Motrin 800 mg Tablet] 800 mg PO Q8 #60 tablet 01/20/19 HPI Reason(s) for Admission: Onset of Labor Procedures: Ultrasound Intrapartum Procedure(s): Spontaneous Vaginal Delivery Complication(s): Laceration-Perineal Laceration-Degree: 2nd Hospital Course Hospital Course: routine Results Laboratory Results: WBC 14.1 10^3/uL (4.0-10.5) H 01/19/19 07:21 RBC 3.83 10^6/uL (3.72-5.28) 01/19/19 07:21 Hgb 11.4 g/dL (12.0-15.5) L 01/19/19 07:21 Hct 33.3 % (36.0-47.0) L 01/19/19 07:21 MCV 87 fl (80-97) 01/19/19 07:21 MCH 29.8 pg (27.0-33.4) 01/19/19 07:21 MCHC 34.3 g/dL (32.0-36.0) 01/19/19 07:21 RDW 13.4 % (11.5-14.0) 01/19/19 07:21 Plt Count 159 10^3/uL (150-450) 01/19/19 07:21 Lymph % (Auto) 15.2 % (13-45) 01/18/19 17:18 [place] % (Auto) 7.6 % (3-13) 01/18/19 17:18 Eos % (Auto) 0.2 % (0-6) 01/18/19 17:18 Baso % (Auto) 0.4 % (0-2) 01/18/19 17:18 Absolute Neuts (auto) 10.9 10^3/uL (1.7-8.2) H 01/18/19 17:18 Absolute Lymphs (auto) 2.2 10^3/uL (0.5-4.7) 01/18/19 17:18 Absolute Monos (auto) 1.1 10^3/uL (0.1-1.4) 01/18/19 17:18 Absolute Eos (auto) 0.0 10^3/uL (0.0-0.6) 01/18/19 17:18 Absolute Basos (auto) 0.1 10^3/uL (0.0-0.2) 01/18/19 17:18 Seg Neutrophils % 76.6 % (42-78) 01/18/19 17:18 Urine Opiates Screen NEGATIVE 01/18/19 16:47 Urine Methadone Screen NEGATIVE 01/18/19 16:47 Ur Barbiturates Screen NEGATIVE 01/18/19 16:47 Ur Phencyclidine Scrn NEGATIVE 01/18/19 16:47 Ur Amphetamines Screen NEGATIVE 01/18/19 16:47 U Benzodiazepines Scrn NEGATIVE 01/18/19 16:47 Urine Cocaine Screen NEGATIVE 01/18/19 16:47 U Marijuana (THC) Screen NEGATIVE 01/18/19 16:47 RPR NONREACTIVE (NONREACTIVE) 01/18/19 17:18 Blood Type O NEGATIVE 01/19/19 07:21 Antibody Screen POSITIVE 01/18/19 17:18 Antibody Identification RHOGAM INDUCED ANTI-D 01/18/19 17:18 Screen NEGATIVE 01/19/19 07:21 Plan Health Concerns: none Plan of Treatment: d/c home, pt to f/u with [facility] in 4 wks for PP check
--- NOTE | 2019-02-15 08:34 | Delivery Summary ---
Del Sum A-C Datetime Report Generated by CPN: 02/15/2019 08:34 DELIVERY PERSONNEL DELIVERY PERSONNEL: [id number] Delivery Doctor:: Tanya Richards MD Labor and Delivery Nurse:: Marily Cevallos RN Labor and Delivery Nurse:: Avinash Garcia RN Bilingual Case Manager:: Lucy Diaz RN MATERNAL INFORMATION Delivery Anesthesia: None Medications After Delivery: Pitocin Drip 20 Units/1000ml NSS Delivery QBL: 100 Maternal Complications: None Provider Comments: kiwi applied x 2 tries. however, application not adequate due to malfunction of vacuum. LABOR SUMMARY EDC: 01/24/2019 00:00 No. Babies in Womb: 1 Attempted: Yes Labor Anesthesia: None LABOR INFORMATION Reason for Induction: Not Applicable Onset of Labor: 01/18/2019 16:52 Complete Dilatation: 01/18/2019 19:15 Oxytocin: N/A Group B Beta Strep: positive Antibiotics # of Doses: 1 Antibiotics Time of Last Dose: 1712 Name of Antibiotic Given: PCN Steroids Given: None Reason Steroids Not Administered: Not Applicable MEMBRANES Membranes Rupture Method: Artificial Rupture of Membranes: 01/18/2019 18:51 Length of Rupture (hr): 1.37 Amniotic Fluid Color: Clear Amniotic Fluid Amount: Small Amniotic Fluid Odor: None STAGES OF LABOR Stage 1 hr: 2 Stage 1 min: 23 Stage 2 hr: 0 Stage 2 min: 58 Stage 3 hr: 0 Stage 3 min: 3 Total Time in Labor hr: 3 Total Time in Labor min: 24 VAGINAL DELIVERY Episiotomy: None Laceration #1: Perineal Laceration Extension #1: First Degree Laceration Repair: Yes Laceration Repair Note: 2-0 chromic Sponge Count Correct: Yes Sharps Count Correct: Yes CSECTION DELIVERY Primary Indication: N/A Secondary Indication: N/A CSection Incidence: N/A Labor: N/A Elective: N/A BABY A INFORMATION Delivery Date/Time: 01/18/2019 20:13 Method of Delivery: Vaginal Born in Route : No : N/A Forceps: N/A Vacuum Extraction: N/A Shoulder Dystocia : No ASSISTED DELIVERY BABY A Indication for Assisted Delivery: lack of maternal effort Catheter Prior to Procedure: No Station Vacuum/Forcep Apply: 3 Vacuum Number of Pulls: 2 Vacuum Number of PopOffs: 2 Reduce Pressure btwn Ctx: Yes Vacuum Retirement Specialist: kiwi Total Time Vacuum Applied: 4 mins PRESENTATION/POSITION BABY A Presentation: Cephalic Presentation: Cephalic Cephalic Presentation: Vertex Vertex Position: Right Occipital Anterior Breech Presentation: N/A PLACENTA INFORMATION BABY A Placenta Delivery Time : 01/18/2019 20:16 Placenta Method of Delivery: Spontaneous Placenta Method of Delivery: Spontaneous Placenta Status: Delivered SCORES BABY A Heart Rate 1 min: >100 bpm Resp Effort 1 min: Good Cry Reflex Irritability 1 min: Cough or Sneeze or Pulls Away Muscle Tone 1 min: Active Motion Color 1 min: Body [place], Extremities Blue Resuscitation Effort 1 min: Tactile Stimulation SCORE 1 MIN: 9 Heart Rate 5 min: >100 bpm Resp Effort 5 min: Good Cry Reflex Irritability 5 min: Cough or Sneeze or Pulls Away Muscle Tone 5 min: Active Motion Color 5 min: Body [place], Extremities Blue Resuscitation Effort 5 min: Tactile Stimulation SCORE 5 MIN: 9 INFANT INFORMATION BABY A Gestational Age at Delivery: 39.1 Gestational Status: Full Term- 39- 40.6 Weeks Infant Outcome : Liveborn Infant Condition : Stable Sex: Female Infant Sex: Female IDENTIFICATION BABY A Infant Verification Date/Time: 01/18/2019 20:29 ID Band Number: [id number] Mother's Name Verified: Yes RN Verifying Infant: C. Shaniilin, RN KArturo Chau, RN WEIGHT/LENGTH BABY A Infant Birthweight (gm): 3446 Infant Weight (lb): 7 Weight (oz): 10 Length (in): 20.00 Length (cm): 50.80 CORD INFORMATION BABY A No. Cord Vessels: 3 Nuchal Cord : Around Neck x1, Tight Cord Blood Taken: Yes-For Eval (Mom's Blood Type - or O+) Infant Suction: Mouth; Nose ASSESSMENT BABY A Skin to Skin: Yes Skin to Skin: Yes BABY B INFORMATION : N/A SIGNATURES Signature: with User ID: [email or web address] : I was personally available for consultation and serving as supervising physician for the MLP.
--- NOTE | 2019-02-15 08:35 | Admission Physical ---
Datetime Report Generated by CPN: 02/15/2019 08:34 CURRENT ADMISSION Chief Complaint: Uterine Contractions Indication for Induction: Not Applicable Admit Impression : Active Labor; No Active Labor Admit Plan: Admit to Unit ALLERGIES Medication Allergies: No Medication Allergies: No Known Allergies (01/18/2019) Medication Allergies: No Known Allergies (01/15/2019) Medication Allergies: No Known Allergies (11/22/2018) Medication Allergies: No Known Allergies (07/09/2018) Latex: No Latex Allergies Food Allergies: none Environmental Allergies: none OBSTETRICAL HISTORY EDC: 01/24/2019 00:00 : 1 Para: 0 Gestational Diabetes: No Rh Sensitization: No Incompetent Cervix: No OZZIE: No Infertility: No ART Treatment: No Uterine Anomaly: No IUGR: No Hx Previous C/S: No Macrosomia: No Hx Loss/Stillborn: No PIH: No Hx : No Placenta Previa/Abruption: No Depression/PP Depression: No PTL/PROM: No Post Hemorrhage: No Current Procedures: Ultrasound Obstetrical History Comments: G1 current SEE RECORDS Alcohol: No Marijuana : No Cocaine: No Other Illicit Drugs: No Cigarettes: Never Smoker. 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 Heart Disease: No Hosp/Surgery: Yes Autoimmune Disorder: No Anesthetic Complications: No Kidney Disease: No Abnormal Pap Smear: No Neuro/Epilepsy: No Psychiatric Disorders: No Other Medical Diseases: No Hepatitis/Liver Disease: No Significant Family History: No Varicosities/Phlebitis: No Trauma/Violence : No Thyroid Dysfunction: No Medical History Comments: Scope for endometriosis 09/2016- negative INFECTIOUS HISTORY Gonorrhea: No Genital Herpes: No Chlamydia: No Tuberculosis: No Syphilis: No Hepatitis: No HIV/AIDS Exposure: No Rash or Viral Illness: Yes HPV: No Infectious History Comments: Shingles last month PHYSICAL EXAM General: Normal HEENT: Deferred Neurologic: Normal Thyroid: Deferred Heart: Normal Lungs: Normal Breast: Deferred Back: Deferred Abdomen: Normal Genitourinary Exam: Normal Extremities: Normal DTRs: Deferred Pelvic Type: Adequate Vital Signs: Reviewed VAGINAL EXAM Dilatation: 5 Effacement: 100 Station: -1 MEMBRANES Membranes: Intact FETUS A EGA: 39.1 Monitoring: External US FHR- Baseline: 140 Variability: Moderate 6-25bpm Presentation: Vertex Admit Comment: GBS + RH Neg PLANS FOR LABOR AND DELIVERY Labor and Delivery: None Pain Management: Natural Feeding Preference: Breast Benefit of Breast Feed Discussed: Yes Circumcision: N/A INFORMED CONSENT Assignment: Tanya Richards MD Signature: with User ID: Austin : with User ID: [place]
== END 2019-01-20 15:45 | disposition home or self-care (01) | DRG 807 ==
LOC: LC 16:42 → LR 17:10 → 2S 23:04
PROVIDERS: ADMIT Obstetrics & Gynecology; ATTEND Obstetrics & Gynecology
PROC: 10E0XZZ Delivery of Products of Conception, External Approach (ICD-10-PCS; principal; 2019-01-18)
PROC: 0KQM0ZZ Repair Perineum Muscle, Open Approach (ICD-10-PCS; 2019-01-18)
PROC: 3E0234Z Introduction of Serum, Toxoid and Vaccine into Muscle, Percutaneous Approach (ICD-10-PCS; 2019-01-20)
DX: O69.1XX0 Labor and delivery complicated by cord around neck, with compression, not applicable or unspecified (principal); Z37.0 Single live birth; O70.1 Second degree perineal laceration during delivery; O75.81 Maternal exhaustion complicating labor and delivery; O99.824 Streptococcus B carrier state complicating childbirth; O26.893 Other specified pregnancy related conditions, third trimester; Z67.41 Type O blood, Rh negative; Z67.91 Unspecified blood type, Rh negative; Z3A.39 39 weeks gestation of pregnancy
CPT/HCPCS: 36415; 80307; 85025; 85027; 85461; 86592; 86850; 86870; 86900; 86901; J2540; J2590; J2790; J3010; J3490